=== PATIENT | male | born 1965 | race Caucasian/White ===

== ENCOUNTER 2022-06-10 08:10 | Outpatient (CLI) | payer OTHER, SELFPAY ==
[2022-06-10 08:46] LABS: Basophils % 0.2 %; Eosinophils % 0.6 %; Hematocrit 41.5 % (42.0-52.0); Hemoglobin 14.3 g/dL (11.7-16.6); Lymphocytes # 1.1 10^3/uL (0.8-4.8); Lymphocytes % 21.4 %; Mean Corpuscular HGB Conc 34.5 g/dL (30.0-36.0); Mean Corpuscular Hemoglobin 33.7 pg (28.0-34.0); Mean Corpuscular Volume 97.9 fl (80-94); Mean Platelet Volume 8.9 fL (7.4-10.4); Monocytes # 0.4 10^3/uL (0.2-0.9); Neutrophils # 3.53 10^3/uL (1.8-7.7); Neutrophils % 70.4 %; Nucleated Red Blood Cells % 0 %; Platelet Count 236 10^3/cmm (130-400); Red Blood Count 4.24 10^6/uL (4.1-5.3); Red Cell Distribution Width 12.6 % (12.1-15.1)
[2022-06-10 09:14] LABS: Cortisol Random 16.58 ug/dL (2.47-19.5)
[2022-06-10 09:17] LABS: Alanine Aminotransferase 21 U/L (0-41); Albumin Level 4.3 g/dL (3.5-5.2); Alkaline Phosphatase 86 U/L (40-130); Aspartate Amino Transferase 18 U/L (0-40); Blood Urea Nitrogen 15 mg/dL (6-20); Calcium 9.4 mg/dL (8.5-10.5); Carbon Dioxide 24 mmol/L (22-29); Chloride 104 mmol/L (98-107); Free T4 Free Thyroxine 1.28 ng/dL (0.82-1.77); Globulin 2.7 g/dL (1.3-4.6); Glomerular Filtration Rate 77.3 mL/min (90-130); Glucose 107 mg/dL (65-115); Osmolality Calculated 289 mOsm/kg (285-295); Sodium 139 mmol/L (136-145); Testosterone Total 247.9 ng/dL (193-740); Thyroid Stimulating Hormone 2.04 uIU/mL (0.27-4.20); Total Bilirubin 0.9 mg/dL (0.15-1.2)
[2022-06-10 10:39] LABS: Estradiol 18.1 pg/mL (7.63-42.6); Follicle Stimulating Hormone 1.8 mIU/mL (1.5-12.4); Luteinizing Hormone 1.9 mIU/mL (1.7-8.6); Prolactin 5.66 ng/mL (4.0-15.2)
== END 2022-06-10 08:11 | disposition home or self-care (01) ==
PROVIDERS: PCP Family Medicine; Visit Provider Internal Medicine
DX: E07.9 Disorder of thyroid, unspecified (principal)
CPT/HCPCS: 36415; 80053; 82533; 82670; 83001; 83002; 84146; 84153; 84402; 84403; 84439; 84443; 85025

== ENCOUNTER 2022-06-11 07:52 | Outpatient (CLI) | payer OTHER, SELFPAY ==
[2022-06-11 08:32] LABS: Testosterone Total 295.2 ng/dL (193-740)
== END 2022-06-11 07:53 | disposition home or self-care (01) ==
LOC: LAB 07:54
PROVIDERS: PCP Family Medicine; Visit Provider Internal Medicine
DX: E07.9 Disorder of thyroid, unspecified (principal)
CPT/HCPCS: 36415; 84403

== ENCOUNTER 2023-05-29 08:26 | Outpatient (CLI) | payer OTHER, SELFPAY ==
--- NOTE | 2023-05-29 08:35 | USCV_ITS ---
Waqas Smith Age: 57 Gender: M : 1965 Exam Date: 05/29/2023 08:56 Ordering Phys: Christy Mcdonough MD Technologist: JAYME Exam Location: [facility] [place]_ Indication: EVAL FOR CAROTID STENOSIS Risk Factors: Previous Vascular Surgery: Right Brachial BP: / Left Brachial BP: / Right Left Velocity (cm/s) Spectral Plaque Velocity (cm/s) Spectral Plaque Syst/Diast Broadening Syst/Diast Broadening 110.30/26.50 Prox CCA 144.60/ 23.70 105.80/27.60 Mid CCA 105.40/ 27.30 79.40/ 23.20 Distal CCA 81.10 / 19.20 66.80/ 20.20 Prox ICA 55.20 / 17.10 73.30/ 27.80 Mid ICA 76.70 / 34.40 61.90/ 23.60 Distal ICA 84.70 / 35.00 86.20 ECA 78.50 0.67 ICA/CCA 0.59 Antegrade Vertebral Antegrade 38.90/ 13.40 cm/s 58.30/ 21.00 cm/s Tri Subclavian Tri 65.50 126.2 0 FINDINGS Comparison: none available. No significant elevation of systolic or diastolic velocities. Waveforms are normal. No significant amount of calcified plaque. Minimal intimal thickening identified. CONCLUSIONS Bilateral ICA stenosis less than 50%. Minimal intimal thickening carotid arteries. Dr. Jane Bright DO (Electronically Signed) Final Date: 29 May 2023 11:01 S
== END 2023-05-29 08:27 | disposition home or self-care (01) ==
LOC: RAD 08:29
PROVIDERS: PCP Family Medicine; Visit Provider Family Medicine
DX: Z13.6 Encounter for screening for cardiovascular disorders (principal)
CPT/HCPCS: 93880

== ENCOUNTER → 2025-07-05 10:50 | Outpatient (BNVA) | payer OTHER, SELFPAY | PROVIDERS: PCP Family Medicine; Visit Provider Dermatology | DX: D22.39 Melanocytic nevi of other parts of face (principal); L81.4 Other melanin hyperpigmentation; L57.8 Other skin changes due to chronic exposure to nonionizing radiation; L57.0 Actinic keratosis | CPT/HCPCS: 17000; 99203 ==